=== PATIENT | male | born 1975 | race Caucasian/White ===

== ENCOUNTER → 2018-06-29 16:01 | Outpatient (CLI) | payer BC, SELFPAY ==
[2018-06-29 16:31] LABS: Alanine Aminotransferase 176 U/L (12-78); Albumin Level 4.4 gm/dL (3.4-5.0); Albumin/Globulin Ratio 1.2 (1.1-1.8); Alkaline Phosphatase 114 U/L (46-116); Anion Gap 17.2 mEq/L (5-15); Aspartate Amino Transferase 117 U/L (15-37); Bilirubin,Total 0.3 mg/dL (0.2-1.0); Blood Urea Nitrogen 12 mg/dL (7-18); Calcium 9.1 mg/dL (8.5-10.1); Carbon Dioxide 26 mmol/L (21.0-32.0); Chloride 105 mmol/L (98-107); Chol/HDL Ratio 3.9 (1-3.5); Cholesterol 248 mg/dL (140-200); Creatinine,Serum 0.74 mg/dL (0.70-1.30); Estimated Glomerular Filt Rate 114 ml/min (>60); Free T4 (Free Thyroxine) 1.02 ng/dl (0.76-1.46); GFR (African American) 138 ML/MIN (>60); Globulin 3.6 gm/dl (1.3-3.2); Glucose 94 mg/dL (74-106); HDL Cholesterol 64 mg/dL (27-67); LDL Cholesterol 166 mg/dL (0-130); Potassium 4.2 mmoL/L (3.5-5.1); Sodium 144 mmol/L (136-145); Thyroid Stimulating Hormone 0.68 uIU/ml (0.358-3.740); Triglycerides 91 mg/dL (30-200); VLDL Cholesterol 18 mg/dL (0-40)
[2018-06-29 16:32] LABS: Basophils # 0.1 K/mm3 (0-0.2); Basophils % 0.8 % (0.1-2.0); Eosinophils # 0.2 K/mm3 (0.0-0.4); Eosinophils % 2.2 % (0.1-12.0); Hematocrit 48.2 % (42.0-52.0); Hemoglobin 15.8 g/dL (14.1-18.0); Lymphocytes # 4.3 K/mm3 (0.7-4.5); Lymphocytes % 46.2 % (10-50); Mean Corpuscular HGB Conc 32.9 g/dL (31.8-35.4); Mean Corpuscular Hemoglobin 30.7 pg (27.0-31.2); Mean Corpuscular Volume 93.2 fl (80-94); Mean Platelet Volume 9.1 fl (7.4-10.4); Monocytes # 0.5 K/mm3 (0.1-1.0); Monocytes % 5.3 % (1.7-9.3); Neutrophils # 4.3 K/mm3 (1.8-7.8); Neutrophils % 45.5 % (37.0-80.0); Platelet Count 264 K/mm3 (142-424); Red Blood Count 5.17 M/mm3 (4.60-6.20); Red Cell Distribution Width 14.2 % (11.5-17.5); White Blood Count 9.4 K/mm3 (4.8-10.8)
[2018-07-01 08:43] LABS: Vitamin D 25 Hydroxy 26.2 ng/mL (30.0-100.0)
[2018-07-01 09:22] LABS: Hep A Ab, IgM Negative (Negative); Hepatitis B Core Antibody IgM Negative (Negative); Hepatitis B Surface Antigen Negative (Negative)
[2018-07-01 10:04] LABS: Hepatitis C Antibody 0.1 s/co ratio (0.0-0.9)
== END ==
PROVIDERS: Visit Provider Physician Assistant
DX: R53.83 Other fatigue (principal); R94.5 Abnormal results of liver function studies
CPT/HCPCS: 80053; 80061; 80074; 82652; 84439; 84443; 85025

== ENCOUNTER → 2019-01-21 16:55 | Outpatient (CLI) | payer BC, SELFPAY ==
[2019-01-21 17:26] LABS: Basophils % 0.4 % (0.1-2.0); Eosinophils # 0.1 K/mm3 (0.0-0.4); Eosinophils % 1.3 % (0.1-12.0); Hematocrit 44.3 % (42.0-52.0); Hemoglobin 14.5 g/dL (14.1-18.0); Lymphocytes # 3.1 K/mm3 (0.7-4.5); Lymphocytes % 38.4 % (10-50); Mean Corpuscular HGB Conc 32.7 g/dL (31.8-35.4); Mean Corpuscular Volume 97.9 fl (80-94); Mean Platelet Volume 9.9 fl (7.4-10.4); Monocytes # 0.4 K/mm3 (0.1-1.0); Monocytes % 4.5 % (1.7-9.3); Neutrophils # 4.5 K/mm3 (1.8-7.8); Neutrophils % 55.4 % (37.0-80.0); Platelet Count 337 K/mm3 (142-424); Red Blood Count 4.52 M/mm3 (4.60-6.20); Red Cell Distribution Width 13.3 % (11.5-17.5); White Blood Count 8.1 K/mm3 (4.8-10.8)
[2019-01-21 17:39] LABS: Alanine Aminotransferase 74 U/L (12-78); Albumin Level 4.6 gm/dL (3.4-5.0); Albumin/Globulin Ratio 1.4 (1.1-1.8); Alkaline Phosphatase 77 U/L (46-116); Anion Gap 16.9 mEq/L (5-15); Aspartate Amino Transferase 62 U/L (15-37); Bilirubin,Total 0.5 mg/dL (0.2-1.0); Blood Urea Nitrogen 13 mg/dL (7-18); Calcium 9.6 mg/dL (8.5-10.1); Carbon Dioxide 27 mmol/L (21.0-32.0); Chloride 100 mmol/L (98-107); Chol/HDL Ratio 2.1 (1-3.5); Cholesterol 207 mg/dL (140-200); Creatinine,Serum 0.74 mg/dL (0.70-1.30); Estimated Glomerular Filt Rate 114 ml/min (>60); GFR (African American) 138 ML/MIN (>60); Globulin 3.2 gm/dl (1.3-3.2); Glucose 106 mg/dL (74-106); HDL Cholesterol 99 mg/dL (27-67); LDL Cholesterol 96 mg/dL (0-130); Potassium 3.9 mmoL/L (3.5-5.1); Sodium 140 mmol/L (136-145); T4 (Thyroxine) 5.7 ug/dl (4.7-13.3); Total Protein,Serum 7.8 gm/dL (6.4-8.2); Triglycerides 59 mg/dL (30-200); VLDL Cholesterol 12 mg/dL (0-40)
[2019-01-23 20:02] LABS: Vitamin D 25 Hydroxy 74.5 ng/mL (30.0-100.0)
== END ==
PROVIDERS: Visit Provider Physician Assistant
DX: I10 Essential (primary) hypertension (principal); E78.5 Hyperlipidemia, unspecified; E55.9 Vitamin D deficiency, unspecified
CPT/HCPCS: 80053; 80061; 82652; 84436; 84443; 85025

== ENCOUNTER 2019-02-25 14:00 | Outpatient (RCR) | payer BC, SELFPAY ==
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
--- NOTE | 2019-02-25 15:29 | HMH.RHREAS ---
Rehab Reassessment Rehab OP Re-assessment Start: 02/25/19 15:22 Freq: Status: Active Protocol: Document 02/25/19 15:26 JUAN DAVID (Rec: 02/25/19 15:28 PHOKHADRA [id number]) Electronically Signed By Mundo Carmona, PT 02/25/19 15:26 Rehab Re-assessment Subjective Subjective Pt continues to c/o pain in the left side of low back and posterior mid thigh. Objective Objective Notes AROM lumbar spine: Flex= 0-50, Ext= 0-5, R SB= 0-15, L SB= 0 -15. Assessment Progress Assessment Slower Than Expected Assessment Notes Pain remains at same level from initial eval. ROM in flex is slightly improved, but ext is worse. Patient goals met none Goals Not Met ST,2,3,4,5 LT,2,3, 4,5 Revised Goals none Plan Plan Continue per initial POC. Frequency of Therapy 2x/wk Duration of therapy 8wks Time and Billing Re-Eval Time 15 Re-Eval Billing Units 1 PHYSICIAN CERTIFICATION: I certify the specified therapy services for Eduardo Kwon are required, authorized, and reviewed every 30 days.
== END 2019-02-25 14:05 | disposition home or self-care (01) ==
LOC: PT 14:00
PROVIDERS: Visit Provider Physician Assistant
DX: M54.5 Low back pain (principal); G89.29 Other chronic pain
CPT/HCPCS: 97010; 97014; 97035; 97110; 97140; 97163; 97164; G0283

== ENCOUNTER → 2019-03-09 10:34 | Outpatient (POV) | payer BC, SELFPAY ==
[2019-03-09 11:18] VITALS: BP 143/98; PULSE 78; RESP 18; O2SAT 99; BMI 27.2
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
== END ==
PROVIDERS: PCP Physician Assistant; Visit Provider Clinical Nurse Specialist Family Health
DX: M46.1 Sacroiliitis, not elsewhere classified (principal)
CPT/HCPCS: 99202

== ENCOUNTER → 2019-03-17 14:41 | Outpatient (CLI) | payer BC, SELFPAY ==
--- NOTE | 2019-03-17 14:42 | MR_ITS ---
PROCEDURE: MR LUMBAR SPINE WO CON CLINICAL INDICATION: LOW BACK PAIN Left-sided low back pain, left leg pain numbness and tingling. COMPARISON: No exams were available for comparison TECHNIQUE: Standard multiplanar multiecho sequences are performed without contrast. 3-D MIP and myelographic images are also rendered and reviewed FINDINGS: There is normal alignment. The spinal cord ends at the T12 level. T12-L1, L1-L2, L2-L3, and L3-L4 shows some mild disc desiccation. There is mild facet and ligamentum hypertrophy with mild bilateral foraminal narrowing at L2-L3 and moderate foraminal narrowing at L3-L4 L4-5: Mild disc desiccation with mild bulging disc along with facet and ligamentum hypertrophy with moderate bilateral foraminal narrowing. There is borderline canal stenosis at 12 mm. L5-S1: Mild concentric bulging disc with mild facet ligamentum hypertrophy and mild bilateral foraminal narrowing. No extruded herniated disc. IMPRESSION: 1. No extruded herniated disc. 2. There is mild facet and ligamentum hypertrophy with mild bilateral foraminal narrowing at L2-L3 and moderate foraminal narrowing at L3-L4 3. The L4-5: Mild disc desiccation with mild bulging disc along with facet and ligamentum hypertrophy with moderate bilateral foraminal narrowing. There is borderline canal stenosis at 12 mm. 4. L5-S1: Mild concentric bulging disc with mild facet ligamentum hypertrophy and mild bilateral foraminal narrowing. Dictated by: Isaiah Pierson MD 03/19/2019 10:41 Electronically signed by Isaiah Pierson MD in [place] 03/19/2019 10:41
== END ==
PROVIDERS: PCP Physician Assistant; Visit Provider Clinical Nurse Specialist Family Health
DX: M54.5 Low back pain (principal)
CPT/HCPCS: 72148; 76376

== ENCOUNTER → 2019-04-26 15:12 | Outpatient (POV) | payer BC, SELFPAY ==
[2019-04-26 15:56] VITALS: BP 188/89; PULSE 89; RESP 18; O2SAT 98; BMI 25.8
--- NOTE | 2019-04-27 08:59 | P.CONS_ITS ---
[facility] Pain Management SOAP Note Subjective:: Patient is a pleasant 44-year-old white male who presents today for follow-up after left SI joint injection. Patient states that he did not get much relief from his injection. He rates his pain 8 out of 10 however now it is radiating down his whole left leg and into his toes. Patient and I discussed epidural injections. He is interested in pursuing this. Patient is in a Suboxone clinic. Patient is not a candidate for oral narcotics. Patient is tried and failed anti-inflammatories and is continuing a home stretching program set forth by physical therapy. ROS General: no recent weight change, no fever, no sleep disturbances Respiratory: no cough, no shortness of air, no recurring pulmonary infections Cardiovascular/Peripheral Vascular: No chest pain, No palpitations, no edema, no shortness of breath. Gastrointestinal: no new onset incontinence, normal bowel movements reported Genitourinary: no new onset incontinence Musculoskeletal: Back pain, leg pain Psychiatric: normal mood/ affect Neurological: [denies new onset weakness in extremities], [denies new onset balance issues] Objective:: Physical Exam General: Alert and oriented x3, no acute distress, pleasant and cooperative, [on room air] Lungs: Resps E/U, Symmetrical chest expansion, Eyes: PERRL Musculoskeletal: Flexion and extension of lumbar spine somewhat guarded secondary to pain, deep tendon reflexes normal, strength in upper and lower extremities [5/5], [abnormal gait noted] Neurological: speech clear, change management consultant equal, no gross sensory deficits Assessment:: Degenerative disc disease lumbar spine with lumbar radiculopathy Plan:: We will schedule the patient for an L4-L5 lumbar epidural steroid injection. I do believe given his symptomology would be beneficial. He is not on any anticoagulation therapy. I will follow-up with him after this reassess his symptoms at that time is been instructed to call the office if he has any issues prior to his next appointment. Dr. Tena has reviewed this note and agrees with this plan of care. This note was dictated using voice recognition software and may contain errors or omissions [facility] History I have reviewed the patient's past medical history: Yes Medical History: Reports:: Depression, Hypertension Denies:: Diabetes Mellitus Type 1, Diabetes Mellitus Type 2 *Have you ever received a pneumonia vaccine?: Yes *Have you received a flu vaccine this season?: Yes Other Medical History: Reports: Fibromyalgia Other Surgeries: Yes: No Previous Surgery Fractures: Yes (left femur,jamaal inserted and taken out a year later) - *Social History Smoking Status: Current every day smoker Tobacco Type: cigarettes # Packs/Day (cigarettes): 1 Alcohol Intake: never Alcohol Intake Frequency:: a few times a week Substance Use Type: opiates, former substance user (Hasn't used for 4 years ) *Occupational Status:: other Housing: house Household Members: spouse, other *Travel in the last 8 weeks: None - Psychiatric History Pschychiatric History:: Reports:: Depression Family Hx:: Adopted
== END ==
PROVIDERS: PCP Physician Assistant; Visit Provider Clinical Nurse Specialist Family Health
DX: M51.16 Intervertebral disc disorders with radiculopathy, lumbar region (principal); F32.9 Major depressive disorder, single episode, unspecified; I10 Essential (primary) hypertension; Z72.0 Tobacco use; F11.11 Opioid abuse, in remission
CPT/HCPCS: 99212

== ENCOUNTER → 2019-05-24 15:02 | Outpatient (POV) | payer BC, SELFPAY ==
[2019-05-24 15:14] VITALS: BP 169/98; PULSE 92; RESP 18; O2SAT 99; BMI 25.8
--- NOTE | 2019-05-24 15:24 | HMH.PAINSOAP ---
[facility] Pain Management SOAP Note Subjective:: Patient is a pleasant 44-year-old white male who presents today for follow-up after lumbar epidural steroid injection at L4-L5. He is being treated for low back pain with lumbar radiculopathy symptoms. Patient is having increased pain to his low back and down his left leg. He does say flexion of his left leg along with leaning forward gives him relief to his low back and left leg pain. Patient is currently in a Suboxone clinic. He says recently his Suboxone dose was increased due to his increased pain. Patient says that he was told by his other providers that he cannot possibly have spinal stenosis. Patient says that he does feel that his symptoms are very similar to what he has read about with regards to spinal stenosis. Patient is having some heaviness and weakness to his bilateral lower extremities, as well. Patient rates his pain a 6 out of 10 today. He is having difficulty ambulating due to the severity of the pain. He describes the pain as throbbing and constant in nature. This pain has been going on for more than a year, but progressively got worse over the last 3 to 4 months. He has tried anti-inflammatories. He is also continuing with a home stretching program. The patient has had physical therapy for greater than 6 weeks, most notably within the last 2 months. The patient has demonstrated those exercises while in the clinic. The patient says that he has not gotten any relief following his lumbar epidural steroid injection. He says that he may have possibly gotten at most 5% relief. Review of Systems General: No recent weight changes, no fever, no sleep disturbances Respiratory: No cough, no shortness of air, no recurring pulmonary infections Cardiovascular/peripheral vascular: No chest pain, no palpitations, no edema, no shortness of breath Gastrointestinal: No new onset incontinence, normal bowel movements reported Genitourinary: No new onset incontinence Musculoskeletal: Low back pain, left leg pain Psychiatric: Normal mood/affect Neurological: [Denies weakness in extremities], [denies balance issues] Objective:: Physical exam General: Alert and oriented x3, no acute distress, pleasant and cooperative, [on room air] Lungs: Respirations even and unlabored, symmetrical chest expansion Eyes: PERRL Musculoskeletal: Flexion and extension of lumbar spine somewhat guarded secondary to pain, deep tendon reflexes normal, strength in upper and lower extremities [5/5], [abnormal gait noted] Neurological: Speech clear, nibbler operator equal, no gross sensory deficit Assessment:: Degenerative disc disease lumbar spine with lumbar radiculopathy symptoms, spinal stenosis with neurogenic claudication symptoms. Plan:: Patient does have a recent MRI showing ligamentum flavum hypertrophy. I think the patient would benefit from an epidurogram to determine if he is a superion vertiflex candidate. We will schedule him for the procedure and see him back in the clinic to determine a further plan of care. He does understand that we may need to undergo x-rays following the epidurogram if he is considered a candidate per Dr. Tena. The patient did not get any relief with the lumbar epidural steroid injection. He will continue with anti-inflammatories and a home stretching program. He is not on any anticoagulation therapy I have advised the patient to call the clinic if he has any concerns before his next appointment. Dr. Tena has reviewed this note and agrees with this plan of care. This note was dictated using voice recognition software and make contain errors or omissions. [facility] History I have reviewed the patient's past medical history: Yes Medical History: Reports:: Depression, Hypertension Denies:: Diabetes Mellitus Type 1, Diabetes Mellitus Type 2, Seizures *Have you ever received a pneumonia vaccine?: Yes *Have you received a flu vaccine this season?: Yes Other Medical History: Reports: F
== END ==
PROVIDERS: PCP Physician Assistant; Visit Provider Clinical Nurse Specialist Family Health
DX: M51.16 Intervertebral disc disorders with radiculopathy, lumbar region (principal); M48.062 Spinal stenosis, lumbar region with neurogenic claudication
CPT/HCPCS: 99212

== ENCOUNTER 2019-10-29 12:59 | Emergency (ER) | payer BC, SELFPAY ==
[2019-10-29] VITALS (11 sets, daily range): BP systolic 124–146; BP diastolic 68–98; PULSE 89–138; RESP 16–18; TEMP 36.6–37.2; O2SAT 94–100; BMI 23.9
--- NOTE | 2019-10-29 13:28 | HMH.EDUTC ---
[facility] [place] Condition on Discharge: Good Time of Disposition: 13:43 <Amisha Edwards - Last Filed: 10/29/19 15:54> Condition on Discharge: Good <Cordell Kilgore - Last Filed: 10/29/19 18:05> Clinical Impression: Alcoholic hepatitis Abdominal pain Qualifiers: Abdominal location: unspecified location Qualified Code(s): R10.9 - Unspecified abdominal pain Disposition: Home, Self-Care Instructions: Alcoholic Hepatitis (Alternative Therapy) Referrals: Juanita Lake PA [Primary Care Provider] - Joaquin Morales MD [Staff Physician] - Medical Decision Making - Giancarlo Inquiry Pt receiving controlled substance: No Giancarlo was queried for this patient: No - Lab Data Result diagrams: 10/29/19 14:50 10/29/19 14:50 <Amisha Edwards - Last Filed: 10/29/19 15:54> - Lab Data Result diagrams: 10/29/19 14:50 10/29/19 14:50 <Cordell Kilgore - Last Filed: 10/29/19 18:05> Vital Signs: 10/29/19 13:23 10/29/19 14:11 10/29/19 14:52 Temperature 98.9 F 98.2 F Temperature Source Oral Oral Pulse Rate [Radial] 138 H 107 H 110 H Respiratory Rate 17 18 Blood Pressure [Right Arm] 141/96 H 141/95 H 124/80 Blood Pressure Mean [Right Arm] 111 110 94 Blood Pressure Source [Right Arm] Automatic Cuff Automatic Cuff Blood Pressure Position [Right Arm] Sitting Sitting Sitting 02 Sat by Pulse Oximetry 98 100 96 Oxygen Delivery Method Room Air Room Air Room Air 10/29/19 14:55 10/29/19 15:00 10/29/19 15:30 Temperature Temperature Source Pulse Rate [Radial] 116 H 111 H 131 H Respiratory Rate Blood Pressure [Right Arm] 124/80 129/68 137/90 Blood Pressure Mean [Right Arm] 94 88 105 Blood Pressure Source [Right Arm] Automatic Cuff Automatic Cuff Automatic Cuff Blood Pressure Position [Right Arm] Sitting Sitting Sitting 02 Sat by Pulse Oximetry 94 L 97 98 Oxygen Delivery Method Room Air Room Air Room Air 10/29/19 16:00 10/29/19 16:30 10/29/19 17:00 Temperature Temperature Source Pulse Rate [Radial] 89 103 H Respiratory Rate Blood Pressure [Right Arm] 133/83 146/98 H 141/89 H Blood Pressure Mean [Right Arm] 99 114 106 Blood Pressure Source [Right Arm] Automatic Cuff Automatic Cuff Automatic Cuff Blood Pressure Position [Right Arm] Sitting Sitting Sitting 02 Sat by Pulse Oximetry 94 L 99 Oxygen Delivery Method Room Air Room Air 10/29/19 17:30 Temperature Temperature Source Pulse Rate [Radial] 103 H Respiratory Rate Blood Pressure [Right Arm] 138/94 H Blood Pressure Mean [Right Arm] 108 Blood Pressure Source [Right Arm] Automatic Cuff Blood Pressure Position [Right Arm] Sitting 02 Sat by Pulse Oximetry 97 Oxygen Delivery Method Room Air - Lab Data Lab Results 10/29/19 13:52: PT 10.8, INR 1.05, APTT 25.0 10/29/19 14:50: WBC 14.2 H, RBC 4.02 L, Hgb 13.5 L, Hct 39.4 L, MCV 98.0 H, MCH 33.7 H, MCHC 34.4, RDW 17.1, Plt Count 353, MPV 8.3, Neut % (Auto) 45.7, Lymph % (Auto) 49.1, [place] % (Auto) 3.3, Eos % (Auto) 1.3, Baso % (Auto) 0.6, Neut # (Auto) 6.5, Lymph # (Auto) 7.0 H, [place] # (Auto) 0.5, Eos # (Auto) 0.2, Baso # (Auto) 0.1 10/29/19 14:50: Sodium 128 L, Potassium 3.7, Chloride 92 L, Carbon Dioxide 23, Anion Gap 16.7 H, BUN 15, Creatinine 1.00, Estimated Creat Clear 99, Estimated GFR 80, Est GFR ( Amer) 97, Glucose 120 H, Calcium 9.5, Total Bilirubin 15.5 H*, AST 457 H*, ALT 182 H, Alkaline Phosphatase 1511 H, Total Protein 7.9, Albumin 3.7, Globulin 4.2 H, Albumin/Globulin Ratio 0.9 L, Amylase 73, Lipase 102 10/29/19 14:50: Plasma/Serum Alcohol < 10 10/29/19 14:50: PT 10.6, INR 1.03 10/29/19 14:50: Ammonia 21 10/29/19 14:50: Blood Type O Positive, Antibody Screen Negative Orders (Tests/Meds): ED MEDICATIONS Generic Name Dose Route Start Last Admin Trade Name Freq PRN Reason Stop Dose Admin Multivitamins 10 ml/ Thiamine 1,015 mls @ 150 mls/hr 10/29/19 14:45 10/29/19 14:45 HCl 100 mg/ Magnesium Sulfate IV 10/29/19 21:30 150 mls/hr 2 gm/ Lactated Ringer's
--- NOTE | 2019-10-29 14:13 | CT_ITS ---
PROCEDURE: CT ABDOMEN PELVIS WO CON CLINICAL INDICATION: abd pain jaundice Abdominal pain, jaundice bloody vomiting dark stools COMPARISON: No exams were available for comparison TECHNIQUE: Axial images obtained with sagittal and coronal reformats. All CT scans at the facility use one or more dose reduction, viz: automated exposure control, ma/kV adjustment per patient size (including targeted exams where dose is matched to indication, i.e. head), or iterative reconstruction technique. FINDINGS: LOWER THORAX: No acute finding ABDOMEN & PELVIS: There is diffuse fatty infiltration of the liver. The gallbladder appears somewhat contracted. The spleen, adrenal glands, pancreas, and kidneys have an unremarkable appearance. There is a nonobstructing 2 mm stone in the mid aspect of the right kidney No intestinal obstruction or free air. Unremarkable appendix. There is mild thickening of the colon throughout. No evidence of diverticulitis. The prostate is slightly prominent at 4.7 cm with central calcification. Lucency is noted in the intramedullary region of the proximal left femur consistent with a prior intramedullary jamaal track. Please correlate with clinical findings. IMPRESSION: 1. Mild thickening of the colon. This is nonspecific and could be due to nondistention or colitis. 2. Fatty liver. 3. Nonobstructing right nephrolithiasis Dictated by: Isaiah Pierson MD 10/29/2019 14:49 Electronically signed by Isaiah Pierson MD in [facility] 10/29/2019 14:49
--- NOTE | 2019-10-29 14:25 | PC.NURSE ---
Pt to rad.
--- NOTE | 2019-10-29 14:36 | PC.NURSE ---
Pt returned from rad. Lab at bedside
[2019-10-29 15:09] LABS: Basophils # 0.1 K/mm3 (0-0.2); Basophils % 0.6 % (0.1-2.0); Eosinophils # 0.2 K/mm3 (0.0-0.4); Eosinophils % 1.3 % (0.1-12.0); Hematocrit 39.4 % (42.0-52.0); Hemoglobin 13.5 g/dL (14.1-18.0); Lymphocytes % 49.1 % (10-50); Mean Corpuscular HGB Conc 34.4 g/dL (31.8-35.4); Mean Corpuscular Hemoglobin 33.7 pg (27.0-31.2); Mean Platelet Volume 8.3 fl (7.4-10.4); Monocytes # 0.5 K/mm3 (0.1-1.0); Monocytes % 3.3 % (1.7-9.3); Neutrophils # 6.5 K/mm3 (1.8-7.8); Neutrophils % 45.7 % (37.0-80.0); Platelet Count 353 K/mm3 (142-424); Red Blood Count 4.02 M/mm3 (4.60-6.20); Red Cell Distribution Width 17.1 % (11.5-17.5); White Blood Count 14.2 K/mm3 (4.8-10.8)
[2019-10-29 15:18] LABS: Alanine Aminotransferase 182 U/L (12-78); Albumin Level 3.7 g/dl (3.5-5.0); Albumin/Globulin Ratio 0.9 (1.1-1.8); Amylase 73 U/L (30-110); Anion Gap 16.7 mEq/L (5-15); Aspartate Amino Transferase 457 U/L (17-59); Bilirubin,Total 15.5 mg/dl (0.2-1.3); Blood Urea Nitrogen 15 mg/dl (9-20); Calcium 9.5 mg/dl (8.4-10.2); Carbon Dioxide 23 mmol/L (22.0-30.0); Chloride 92 mmol/L (98-107); Creatinine Clearance Estimated 99 mL/min (50-200); Estimated Glomerular Filt Rate 80 ml/min (>60); GFR (African American) 97 ML/MIN (>60); Globulin 4.2 g/dL (1.3-3.2); Glucose 120 mg/dl (74-100); INR 1.03 (0.9-1.1); Lipase 102 U/L (23-300); Potassium 3.7 mmoL/L (3.5-5.1); Prothrombin Time 10.6 seconds (9.4-11.8); Sodium 128 mmol/L (136-145); Total Protein,Serum 7.9 g/dl (6.3-8.2)
[2019-10-29 15:19] LABS: Ethyl Alcohol < 10 mg/dl (0-10)
[2019-10-29 15:22] LABS: Ammonia 21 umol/L (9-30)
[2019-10-29 15:27] LABS: Alkaline Phosphatase 1511 U/L (38-126)
[2019-10-29 16:36] LABS: INR 1.05 (0.9-1.1); Prothrombin Time 10.8 seconds (9.4-11.8)
== END 2019-10-29 18:15 | disposition home or self-care (01) ==
LOC: UTC 13:43 → ER 13:59
PROVIDERS: Emergency Provider Family Medicine; PCP Physician Assistant
DX: K70.10 Alcoholic hepatitis without ascites (principal); I10 Essential (primary) hypertension; F33.1 Major depressive disorder, recurrent, moderate; M79.7 Fibromyalgia; E78.5 Hyperlipidemia, unspecified; F17.210 Nicotine dependence, cigarettes, uncomplicated; Z79.899 Other long term (current) drug therapy
CPT/HCPCS: 36415; 74176; 80053; 82140; 82150; 83690; 85025; 85610; 85730; 86850; 96365; 99283